=== PATIENT | female | born 1955 | race Caucasian/White ===

== ENCOUNTER → 2020-10-25 | Day surgery (SDC) | payer BC ==
[~2020-10-25] MED LIST: Ketamine 200 MG/20 ML MDV ONE; Lactated Ringers 1,000 ML IV SCH; Propofol 200 MG/20 ML SDV ONE; fentaNYL 100 MCG/2 ML SDV ONE
[2020-10-25 10:35] VITALS: BP 120/63; PULSE 51
--- NOTE | 2020-10-25 13:34 | OR ---
DATE OF OPERATION: 10/25/2020 PREOPERATIVE DIAGNOSIS: EPIGASTRIC PAIN. POSTOPERATIVE DIAGNOSIS: EPIGASTRIC PAIN. SURGEON: Jovani Parmar MD PROCEDURE: DIAGNOSTIC ESOPHAGOGASTRODUODENOSCOPY WITH JONAH. ANESTHESIA: MAC. COMPLICATIONS: None. SPECIMEN: Antral JONAH. FINDINGS: Essentially normal full-length EGD. RECOMMENDATIONS: Recommend gallbladder workup. INDICATIONS: Ms. Guerrier is a 65-year-old who has had some ongoing issues with epigastric pain, worse in the recent past. She apparently at some point in the last year too has had a gallbladder ultrasound which she was told was negative. She comes in for worsening epigastric pain and we elected to proceed with diagnostic EGD. DESCRIPTION OF PROCEDURE: The patient was prepped and draped, placed in the left lateral decubitus position. A lubricated Olympus gastroscope was inserted over a bit, advanced to cricopharyngeus area, and easily intubated in the esophagus. The esophageal lining was benign in its entire course. The Z-line was crisp around 37 cm. No hernia present. No spontaneous reflux seen. There was no distal esophagitis, stricturing, ulceration, or Potter's changes. The scope was advanced into the stomach, through the pylorus, and into the second portion of the duodenum. This and the duodenal bulb were fine. The scope was brought back into the stomach and retroflexed. The upper fundus and cardia were unremarkable. Upon straightening, the entire gastric lining showed no signs of any peptic ulcer disease, polyps, mass, or worrisome lesion. CLOtest was obtained. Air was suctioned. The scope removed without complication. KAIN/ZOIE /[id number]
== END ==
LOC: CC.SDS 08:37
PROVIDERS: ATTEND Family Medicine
DX: R10.13 Epigastric pain (principal); I10 Essential (primary) hypertension; E03.9 Hypothyroidism, unspecified; Z79.890 Hormone replacement therapy; Z79.899 Other long term (current) drug therapy; Z88.7 Allergy status to serum and vaccine; Z88.8 Allergy status to other drugs, medicaments and biological substances
CPT/HCPCS: 00731; 76705; 87081; J2704; J3010; J7120

== ENCOUNTER → 2020-11-14 | Day surgery (SDC) | payer BC ==
[~2020-11-14] MED LIST changes: +Acetaminophen/oxyCODONE 325-5 MG Tab PO PRN; +Dexamethasone 4 MG/ML SDV ONE; +Glycopyrrolate 0.2 MG/ML SDV ONE; +Ketorolac 30 MG/ML SDV ONE; -Lactated Ringers 1,000 ML IV SCH; +Lidocaine 1% 30 ML SDV ONE; +Lidocaine 2% 5 ML SDV ONE; +Midazolam 1 MG/ML 2 ML SDV ONE; +Morphine 4 MG/ML VIAL IV PRN; +Morphine 4 MG/ML VIAL ONE; +Neostigmine Methylsulfate 10 MG/10 ML MDV ONE; +Ondansetron 4 MG/2 ML SDV IVPUSH PRN; +Ondansetron 4 MG/2 ML SDV ONE; +Sodium Chloride 0.9% 10 ML Syringe FLUSH PRN; +Succinylcholine 200 MG/10 ML MDV ONE
[2020-11-14] MEDS: Lactated Ringers 1,000 ML IV SCH (08:46)
[2020-11-14] MEDS: ceFAZolin 1 GM Vial IVPUSH ONE (09:27)
--- NOTE | 2020-11-14 11:57 | OR ---
DATE OF OPERATION: 11/14/2020 PREOPERATIVE DIAGNOSIS: CHRONIC CHOLECYSTITIS WITHOUT STONES. POSTOPERATIVE DIAGNOSIS: CHRONIC CHOLECYSTITIS WITHOUT STONES. SURGEON: Armen Cody MD PROCEDURE: LAPAROSCOPIC CHOLECYSTECTOMY. ANESTHESIA: General. ESTIMATED BLOOD LOSS: Minimum. SPECIMEN: Gallbladder. INDICATIONS: This 65-year-old female has symptomatic right upper quadrant abdominal pain. Her extensive workup to date has been negative except for a HIDA scan that shows an ejection fraction of 20%. CT is normal. Ultrasound is normal. EGD and endoscopies are all normal. FINDINGS: Normal-appearing gallbladder. No other intraabdominal abnormalities seen. DESCRIPTION OF PROCEDURE: After adequate preparation, an infraumbilical stab incision was made and a 5-mm trocar inserted. The abdomen was then insufflated and the camera introduced. Under visual direction, 3 other right upper quadrant trocars were placed. The gallbladder was elevated over the liver bed. There were no abnormalities in the gallbladder. It was soft, pliable, and roslyn egg blue. The cystic triangle structures were dissected free, triply clipped, and divided. The gallbladder was taken off the liver bed using blunt, sharp, and Bovie dissection. There was no spillage of bile. The right upper quadrant was irrigated with saline and suctioned clear. The gallbladder was removed through the epigastric trocar site and the abdomen desufflated and the skin closed with Vicryl. BPB/MODL /[id number]
[2020-11-14 16:14] VITALS: BP 124/60; PULSE 60
--- NOTE | 2020-11-14 16:28 | PCM.SN.2 ---
- Free Text/Narrative Note: Stable now. No Pain. PO liquid tolerated. Wounds clean and dry. Can discharge. FU as needed. No restrictions on diet or activity. OTC meds for pain.
== END | disposition home or self-care (01) ==
LOC: CC.SDS 08:11
PROVIDERS: ATTEND Surgery
DX: K81.1 Chronic cholecystitis (principal); I10 Essential (primary) hypertension; K21.9 Gastro-esophageal reflux disease without esophagitis; E03.9 Hypothyroidism, unspecified; Z79.899 Other long term (current) drug therapy; Z88.8 Allergy status to other drugs, medicaments and biological substances; Z79.890 Hormone replacement therapy
CPT/HCPCS: 00790; J0330; J0690; J1100; J1885; J2250; J2270; J2405; J2704; J2710; J3010; J3490; J7120